=== PATIENT | female | born 1965 | race Caucasian/White ===

== ENCOUNTER 2016-09-26 11:05 | Day surgery (SDC) | payer BC ==
[2016-09-19 15:22] LABS: HEMATOCRIT 38.8 % (36.0-48.0); HEMOGLOBIN 12.9 g/dL (12.0-16.0)
[~2016-09-26 11:05] MED LIST: PRILO PO; SYN075 PO; WELLXL150 PO; XYZAL5 MG PO
== END 2016-09-26 15:19 | disposition home or self-care (01) ==
LOC: IMGHOLD 11:05 → RADHOLD 11:07
PROVIDERS: Oral & Maxillofacial Surgery
DX: S03.02XA Dislocation of jaw, left side, initial encounter (principal); M79.7 Fibromyalgia; D12.6 Benign neoplasm of colon, unspecified; Z88.1 Allergy status to other antibiotic agents; Z88.2 Allergy status to sulfonamides; Z88.8 Allergy status to other drugs, medicaments and biological substances; Z79.899 Other long term (current) drug therapy; Z90.711 Acquired absence of uterus with remaining cervical stump; Z98.890 Other specified postprocedural states; Z90.49 Acquired absence of other specified parts of digestive tract; Z90.89 Acquired absence of other organs
CPT/HCPCS: 70336; 85014; 85018; J2250; J3010